=== PATIENT | female | born 1950 | race Caucasian/White ===

== ENCOUNTER 2016-07-03 08:11 | Day surgery (SDC) | payer MEDICARE, OTHER ==
[~2016-07-03 08:11] MED LIST: RINGERS SOLUTION,LACTATED 1,000 ML IV PRN
--- OUTSIDE RECORDS SUMMARY | 2016-07-03 08:15 | XMS REPORT | Continuity of Care Document ---
:1950 Author Organization [facility] ([facility]) Address [address] [place] [address] Phone [phone] Care Team Providers Name Role Phone Any Sanchez Primary Care Provider [phone] Source Comments This disclosure is being made pursuant to the Care Everywhere program, applicable federal and state laws, and may not contain all informaitonavailable regarding this patient.[facility] ([facility]) Active Allergies and Adverse Reactions Allergen Noted Date Severity Reactions Comments Sulfa (Sulfonamide Antibiotics) 05/18/2014 Urticaria (Hives) Current Medications Prescription Sig. Disp. Refills Start Date End Date Status hydrochlorothiazide 25 mg Take 25 mg by Active tablet mouth daily. potassium chloride 10 mEq Take 10 mEq by Active XR tablet mouth daily. rOPINIRole 1 mg tablet Take 1 mg by Active mouth as needed. metoPROLol succinate 50 mg Take 50 mg by 07/28/2015 Active XL tablet mouth daily. hydroxychloroquine 200 mg Take 1.5 45 tablet 2 02/22/2016 Active tablet tablets (300 mg total) by mouth daily. levothyroxine 125 mcg Take 125 mcg Active tablet by mouth every morning before breakfast. folic acid 1 mg tablet Take 1 tablet 90 tablet 3 02/22/2016 Active (1 mg total) by mouth daily. methotrexate 2.5 mg tablet Take 8 tablets 32 tablet 5 02/22/2016 Active (20 mg total) by mouth every week. predniSONE 5 mg tablet 7.5 mg x 1 wk 21 tablet 1 02/22/2016 Active and taper 2.5 mg every 1 week until off. Active Problems Problem Noted Date Elevated liver enzymes 02/28/2016 Overview: DICLOFENAC Erosive osteoarthritis of hands, bilateral 11/02/2015 Overview: FILMS 10/18. Venous stasis dermatitis of both lower extremities 05/26/2014 Rheumatoid arthritis with rheumatoid factor of multiple sites 05/24/2014 Generalized OA 05/18/2014 Most Recent Encounters Date Type Specialty Providers Description 04/24/2016 Lab Requisition Pathology [facility], [facility] Dx: Squamous cell carcinoma of skin of right upper limb, including shoulder Immunizations Name Dates Previously Given Next Due Influenza, quadrivalent PF 02/22/2016 Zoster, live (Zostavax) 05/18/2015 Social History Tobacco Use Types Packs/Day Years Used Date Former Smoker Cigarettes 0.25 20 Quit: 03/10/2015 Smokeless Tobacco: Never Used Alcohol Use Drinks/Week oz/Week Comments Yes rare Last Filed Vital Signs Vital Sign Reading Time Taken Blood Pressure 145/72 02/22/2016 11:12 AM CDT Pulse 61 02/22/2016 11:12 AM CDT Temperature 36.4 C (97.5 F) 02/22/2016 11:12 AM CDT Respiratory Rate - - Height 1.753 m (5' 9") 08/09/2015 10:07 AM CDT Weight 84.7 kg (186 lb 11.7 oz) 02/22/2016 11:12 AM CDT Body Mass Index 27.56 02/22/2016 11:12 AM CDT Oxygen Saturation - - Plan of Care Date Type Specialty Providers Description 08/29/2016 Appointment Med Rheumatology Isiah Dinh MD Chief Comp: Patient [address] [place] [address] Visit [phone] (Fax) Health Maintenance Due Date Last Done Comments HCV Screening 1950 Hepatitis B Vaccine (1 of 3 - Primary Series) 1950 Tdap Vaccine 1960 Lipid Disorder Screening 08/20/1967 Td Vaccine 08/20/1967 Mammogram 1989 Colonoscopy 1999 Osteoporosis Screening (DXA Bone Density) 2014 Pneumococcal Vaccine (1 of 2 - PCV13) 2014 Zoster Vaccine Completed 05/18/2015 Influenza Vaccine: Seasonal Completed 02/22/2016 Results from Last 3 Months EXTERNAL MISCELLANEOUS LAB (06/27/2016)Only the most recent of3 resultswithin the time period is included. Component Value Range Ext Creatinine 0.71 0.4-1.4 MG/DL Ext Albumin 3.8 3.4-5.0 G/DL Ext ALT 38 19-67 U/L Ext AST 21 0-48 U/L Ext WBC Count 5.1 4.0-10.5 K/MM3 Ext Hemoglobin 13.0 12.5-16.0 G/DL Ext MCV (Mean Corpuscular Volume) 99.7 78-100 FL Ext Platelet Count 200 150-450 K/MM3 DERMATOPATHOLOGY EXAM (04/22/2016 3:00 PM) Component Value Range Case Report Surgical Pathology Case: [id number] Authorizing Provider:[facility], [facility] Collected: 04/22/2016 03:00 PM Pathologist: Efraín Ogden MD Received: 04/24/2016 12:03 PM Specimen:Skin, other, specify, R Forearm Diagnosis Skin, right forearm, shave biopsy: Squamous cell carcinoma, well differentiated. I have personally reviewed this case and edited the report as necessary. Clinical Information Tissue source/site: Skin shave R forearm. Pertinent clinical history and findings: 1 cm erythematous tender papule with hyperkeratotic scale. Clinical differential diagnosis: SCC. Gross Description A.Received in formalin, in a container labeled Papa, Yoli A, date of , and "R Forearm", is a 1.4 x 1.3 x 0.4 cm velasquez shave biopsy.The specimen is inked, trisected and submitted entirely in A1. LRL/tkr Microscopic Description Sections of skin show a hyperparakeratotic atypical squamous proliferation arising from the epidermis with extension into the dermis as discontiguous atypical squamous islands. Margins are involved. Performed by:Keon Ch MD, R4/rls Specimen Skin - Skin, other, specify
[2016-07-03] MEDS ORDERED: RINGERS SOLUTION,LACTATED 1,000 ML IV ONE (08:47)
[2016-07-03 11:12] VITALS: BP 170/84
--- NOTE | 2016-07-03 12:05 | OR ---
Operative Report - Dictated Report Narrative: OPERATIVE REPORT DATE OF OPERATION: 07/03/2016 PREOPERATIVE DIAGNOSIS: No prior dedicated colon studies POSTOPERATIVE DIAGNOSIS: Ulceration at 80 cm (pathology pending), otherwise normal colonoscopy to the cecum OPERATION: Colonoscopy with biopsy at 80 cm SURGEON: Meghann Mahoney MD ANESTHESIA: NORBERT Glez CRNA INDICATIONS FOR PROCEDURE: The patient is a 65-year-old female referred for initial colon screening by Dr. Sanchez. There is no family history of colon cancer. The patient is currently asymptomatic FINDINGS: Ulcerated area at 80 cm (pathology pending). Very tortuous colon, otherwise normal exam to the cecum. NARRATIVE OF PROCEDURE: The patient was identified in the holding area, and prior to the administration of anesthetic, a multidisciplinary timeout was observed. With the patient in the left lateral position and after the administration of intravenous sedation, the perineum was inspected. There was no evidence of pilonidal disease or skin breakdown. The external appearance of the anus was normal. Sphincter tone was good. The flexible fiberoptic colonoscope was inserted into the rectum which was insufflated with air. The rectal mucosa and submucosal vascular pattern appeared normal, the prep was seen to be complete. The scope was advanced through a very tortuous sigmoid colon, up the descending colon, and around the splenic flexure where the triangular haustral architecture of the transverse colon was seen. At approximately 80 cm an area of ulceration was identified. This was photographed and normal and and NBI.a biopsy was obtained. The site appeared hemostatic. The scope was advanced across the transverse colon, around the hepatic flexure to the cecum, where the confluence of tenia and the ileocecal valve were identified. The mucosa at this level appeared normal. The scope was then slowly withdrawn in a circular fashion so that all aspects of colonic mucosa were inspected. The colon was normal in caliber but redundant in course. The haustral architecture appeared well preserved throughout with no evidence of external compression. Aside from the area of ulceration at 80 cm, the mucosa and submucosal vascular pattern appeared normal, specifically there was no gross evidence to suggest colitis or inflammatory bowel disease and no AV malformations were seen. No elvira diverticulosis was demonstrated. No polyps were encountered. The scope was gradually withdrawn to the level of the rectum. As much insufflated air as possible was removed. The scope was withdrawn from the patient and the procedure terminated. The patient tolerated the anesthetic and procedure well without complication and was transferred back to the ambulatory surgery area awake and in stable condition. The patient remained stable throughout a period of postoperative observation. She denied abdominal discomfort, was able to tolerate by mouth intake, and was up without assistance. I shared the operative findings with the patient and her , and she was given copies of the photographs which appear in the medical record. She was discharged home with instructions not to engage in hazardous activity today, but may resume normal activity tomorrow, and advance diet as tolerated. She is to continue those medications as listed in the history and physical exam. I made arrangements to contact her with the biopsy report and will make additional recommendations for treatment and follow-up based upon that result. Reviewed and electronically signed
== END 2016-07-03 08:12 | disposition home or self-care (01) ==
LOC: AMB 08:11
PROVIDERS: ATTEND Surgery
PROC: 0DBE8ZX Excision of Large Intestine, Via Natural or Artificial Opening Endoscopic, Diagnostic (ICD-10-PCS; principal; 2016-07-03 09:30)
DX: Z12.11 Encounter for screening for malignant neoplasm of colon (principal); K63.3 Ulcer of intestine; K52.9 Noninfective gastroenteritis and colitis, unspecified; I10 Essential (primary) hypertension; M06.9 Rheumatoid arthritis, unspecified; M19.90 Unspecified osteoarthritis, unspecified site; E03.9 Hypothyroidism, unspecified; Z87.891 Personal history of nicotine dependence; Z68.28 Body mass index [BMI] 28.0-28.9, adult

== ENCOUNTER 2018-08-15 16:02 | Inpatient (IN) ==
[2018-08-15] MEDS ORDERED: HYDROmorphone HCL 1 MG/ML DISP.SYRIN ONE (16:12)
[2018-08-15] MEDS ORDERED: HYDROmorphone HCL 1 MG/ML DISP.SYRIN IV ONE (16:12)
[2018-08-15] MEDS ORDERED: ONDANSETRON HCL/PF 2 MG/ML VIAL IV ONE (16:12)
[2018-08-15] MEDS ORDERED: ONDANSETRON HCL/PF 2 MG/ML VIAL ONE (16:13)
[2018-08-15 16:41] LABS: Hematocrit 40.9 % (37.0-47.0); Hemoglobin 14.1 gm/dL (12.5-16.0); Mean Corpuscular Hemoglobin 34.5 pg (27-31); Mean Corpuscular Hgb Conc 34.5 g/dl (32-36); Mean Platelet Volume 9.8 fl (8-12.5); Neutrophil # 9.2 K/mm3 (1.3-6.0); Neutrophil % 84.3 % (42-75.0); Platelet Count 226 K/mm3 (150-450); Red Blood Count 4.09 M/mm3 (4.2-5.4); Red Cell Distribution Width 13.1 % (11.5-14.0); White Blood Count 10.9 K/mm3 (4.0-10.5)
[2018-08-15 16:53] LABS: Albumin * 3.6 gm/dl (3.4-5.0); Anion Gap 15.2 mmol/L (6.8-13.8); BUN/Creatinine Ratio 21.2 (9.0-21.6); Bilirubin, Total 0.4 mg/dL (0.0-1.1); Ca. Corrected For Albumin 9.8 mg/dL (8.4-10.2); Calcium * 9.8 mg/dL (7.9-10.9); Carbon Dioxide 26.8 mmol/L (24-32.6); Total Protein 7.1 gm/dL (6.2-8.2)
--- NOTE | 2018-08-15 17:24 | ERNOTE ---
Lower Extremity HPI - Narrative Date of Service: 08/15/18 - General Lower Extremities Pain: hip: left Time Seen by Provider: 08/15/18 16:05 Source: patient, family Exam Limitations: no limitations - Immun/Allergies/Home Medications Immunizations: IMMUNIZATION HX Immunizations Up to Date Yes History of Influenza Vaccine Yes Hx Pneumococcal Vaccination Yes Allergies/Adverse Reactions: Allergies Allergy/AdvReac Type Severity Reaction Status Date / Time Sulfa (Sulfonamide Allergy Mild Itching Verified 08/15/18 16:22 Antibiotics) Home Medications: HOME MEDICATIONS Folic Acid 1 mg PO DAILY 08/15/18 [Last Taken Unknown] Gabapentin [Neurontin] 100 mg PO BID 08/15/18 [Last Taken Unknown] Hydrochlorothiazide [Hydrodiuril] 25 mg PO DAILY 08/15/18 [Last Taken Unknown] Hydroxychloroquine Sulfate [Plaquenil] 200 mg PO BID 08/15/18 [Last Taken Unknown] Levothyroxine Sodium [Synthroid] 125 mcg PO DAILY 08/15/18 [Last Taken Unknown] Methotrexate Sodium [Methotrexate] 15 mg PO TH 08/15/18 [Last Taken Unknown] Metoprolol Succinate [Toprol Xl] 100 mg PO DAILY 08/15/18 [Last Taken Unknown] - History of Present Illness Narrative: 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 Occurred: just prior to arrival Location of Incident: home Method of Injury: Reports: fell, direct blow Reason for Fall: Reports: lost balance, slipped Loss of Consciousness: Reports: no loss of consciousness Modifying Factors - (Improves): Reports: rest Modifying Factors - (Worsens): Reports: movement Associated Symptoms: Reports: unable to bear weight Other Injuries: Reports: none Prior Treament: Reports: recently seen, treated by physician Review of Systems - Review of Systems Constitutional: Present: See HPI EYE: Present: no symptoms reported ENT: Present: no symptoms reported Respiratory: Present: no symptoms reported Cardiology: Present: no symptoms reported Gastrointestinal/Abdominal: Present: no symptoms reported Genitourinary: Present: no symptoms reported Musculoskeletal: Present: See HPI, muscle pain, muscle stiffness, joint pain Neurological: Present: no symptoms reported Endocrine: Present: no symptoms reported Hematologic/Lymphatic: Present: no symptoms reported Psych: Present: no symptoms reported All Other Systems: All systems neg except as marked Medical History (Updated 08/15/18 @ 16:22 by Antony Mckinley RN) History of femur fracture Hypertension Osteoarthritis Rheumatoid arthritis Surgical History: Surgical History (Updated 08/15/18 @ 16:22 by Antony Mckinley RN) History of section History of elbow surgery Social History: Preferred Language Albanian Do you have any mormonism or No cultural preference? Smoking Status Current every day smoker Abuse History No History of abuse Psych History No pertinent hx Alcohol Use rarely Drug Use none No Social History Section defined Physical Exam - Physical Exam General Appearance: Present: moderate distress, anxious Head Exam: Present: normal inspection, no evidence of injury Eye Exam: Normal inspection: bilateral, PERRL: bilateral, EOMI: bilateral Ears, Nose, Throat: Present: normal ENT inspection, normal pharynx Neck: Present: normal inspection, nontender Respiratory: Present: no respiratory distress, normal breath sounds, no accessory muscle use, chest nontender, lungs clear Cardiovascular/Chest: Present: regular rate, rhythm, no murmur, normal peripheral pulses Peripheral Pulses: N=norm/S=strong/W=weak/B=bound/A=absent: Carotid (R): Normal, Carotid (L): Normal, Radial (R): Normal, Radial (L): Normal, Femoral (R): Normal, Femoral (L): Normal, Dorsalis-pedis (R): Normal, Dorsalis-pedis (L): Normal Gastrointestinal/Abdominal: Present: normal bowel sounds, nontender, nondistended, soft, no organomegaly Back Exam: Present: normal inspection, normal range of motion, no CVA tenderness, no vertebral tenderness Extremity Exam: Present: normal except - - pain over greater trochanter left hip, internal and shortening present Neurological Exam: Present: alert, oriented, normal mood/affect, no motor/sensory deficits Skin Exam: Present: normal color, warm/dry Lymphatic Exam: Present: no adenopathy Progress - Date and Time Seen: Date and Time: 08/15/18 17:21 patient unchanged, case discussed with dr kruse and wm concerning admission - Results and Orders Patient's Lab Results:: I have reviewed the patient's lab results. - Vital Signs Patient's Vital Signs:: I have reviewed the patient's vital signs. Vital Signs: Vital Signs 08/15/18 16:03 Temperature 36.6 C Pulse Rate 73 Respiratory Rate 18 Blood Pressure 175/77 H O2 Sat by Pulse Oximetry 100 - X-Ray X-Ray #1 X-Ray: hip Interpretation: Interp. by me - fracture left hip - Progress/Reassessment Chief Complaint: Hip Pain/Injury Progress:: Unchanged - Transfer of Care Expected Disposition: Admit Plan - Plan Plan: to admit to hospital Departure Clinical Impression: Hip fracture, intertrochanteric - Departure Disposition: Home self-care Condition: Stable Instructions: Hip Fracture Referrals: Any Sanchez MD [Primary Care Provider] -
[2018-08-15] MEDS ORDERED: ONDANSETRON HCL/PF 2 MG/ML VIAL IV PRN (17:49)
[2018-08-15 18:03] LABS: Prothrombin Time (Patient) 10.7 Seconds (9.1-10.7)
--- NOTE | 2018-08-15 18:06 | HP ---
Chief Complaint - Chief Complaint Date of Service: 08/15/18 Time of Service: 17:45 Chief Complaint: left groin pain s/p fall History of Present Illness: 67-year-old female with a past medical history of hypertension, osteoarthritis, rheumatoid arthritis presents status post fall with left groin pain. She states that she was outside when she tripped and fell. She noted pain in her left groin and presented to the ER. In the ER she had a x-ray of her hip that showed fracture. Dr. Grayson was contacted and states he would like to operate on her tomorrow. Medical History (Updated 08/15/18 @ 18:06 by Yanelis Quevedo MD) History of femur fracture Hypertension Osteoarthritis Rheumatoid arthritis Surgical History: Surgical History (Updated 08/15/18 @ 16:22 by Antony Mckinley RN) History of section History of elbow surgery Social History: Preferred Language Icelandic Do you have any jain or No cultural preference? Smoking Status Current every day smoker Abuse History No History of abuse Psych History No pertinent hx Alcohol Use rarely Drug Use none No Social History Section defined Review Of Systems (GEN) - Review of Systems Generalized/Overall Review: Absent: Fever EENTM: Absent: Eye Pain Respiratory: Absent: Shortness of Breath Cardiac: Absent: Chest Pain, Edema Abdominal: Absent: Abdominal Pain Genitourinary: Present: Other - Left groin pain Misc: All systems neg except as marked Immunizations: IMMUNIZATION HX Immunizations Up to Date Yes History of Influenza Vaccine Yes Hx Pneumococcal Vaccination Yes Allergies/Adverse Reactions: Allergies Allergy/AdvReac Type Severity Reaction Status Date / Time Sulfa (Sulfonamide Allergy Mild Itching Verified 08/15/18 16:22 Antibiotics) Home Medications: HOME MEDICATIONS Folic Acid 1 mg PO DAILY 08/15/18 [Last Taken Unknown] Gabapentin [Neurontin] 100 mg PO BID 08/15/18 [Last Taken Unknown] Hydrochlorothiazide [Hydrodiuril] 25 mg PO DAILY 08/15/18 [Last Taken Unknown] Hydroxychloroquine Sulfate [Plaquenil] 200 mg PO BID 08/15/18 [Last Taken Unknown] Levothyroxine Sodium [Synthroid] 125 mcg PO DAILY 08/15/18 [Last Taken Unknown] Methotrexate Sodium [Methotrexate] 15 mg PO TH 08/15/18 [Last Taken Unknown] Metoprolol Succinate [Toprol Xl] 100 mg PO DAILY 08/15/18 [Last Taken Unknown] Exam - Exam Vital Signs: Vital Signs - Last Taken Temp 36.6 C 08/15/18 16:03 Pulse 73 08/15/18 16:03 Resp 18 08/15/18 16:03 BP 175/77 H 08/15/18 16:03 Pulse Ox 100 08/15/18 16:03 Constitutional: Present: Alert, Cooperative, Well developed, Well nourished, No distress, Elderly Eye Exam: bilateral eye: normal inspection, PERRL Neck: Present: supple, trachea midline. Absent: lymphadenopathy (R), lymphadenopathy (L) Respiratory: Present: lungs clear. Absent: crackles, rhonchi, wheezing Cardiovascular/Chest: Present: regular rate, rhythm, no edema, no murmur Peripheral Pulses: dorsalis-pedis (R): 2+, dorsalis-pedis (L): 2+ Abdomen: Present: Normal bowel sounds, soft, nontender, nondistended Extremity: Present: no pedal edema Skin Exam: Present: normal color, warm/dry Neurologic: Present: alert, normal mood/affect Appearance: Present: appropriate appearance Eye contact: Present: cooperative, good eye contact Thoughts: Present: normal thought pattern Diagnostic Studies: Abnormal Lab Results 08/15/18 08/15/18 Range/Units 16:35 16:35 WBC 10.9 H (4.0-10.5) K/mm3 RBC 4.09 L (4.2-5.4) M/mm3 MCH 34.5 H (27-31) pg Immature Gran # (Auto) 0.04 H (0.000-0.0310) K/mm3 Neutrophils % 84.3 H (42-75.0) % Lymphocytes % 9.7 L (20-51) % Neutrophils # 9.2 H (1.3-6.0) K/mm3 Lymphocytes # 1.05 L (1.5-3.5) k/mm3 Anion Gap 15.2 H (6.8-13.8) mmol/L Est GFR (Non-Af Amer) 59 L D (60-130) mL/min Random Glucose 124 H (70-110) mg/dL Laboratory Results WBC 10.9 K/mm3 (4.0-10.5) H 08/15/18 16:35 RBC 4.09 M/mm3 (4.2-5.4) L 08/15/18 16:35 Hgb 14.1 gm/dL (12.5-16.0) 08/15/18 16:35 Hct 40.9 % (37.0-47.0) 08/15/18 16:35 MCV 100.0 fl (78-100) 08/15/18 16:35 MCH 34.5 pg (27-31) H 08/15/18 16:35 MCHC 34.5 g/dl (32-36) 08/15/18 16:35 RDW 13.1 % (11.5-14.0) 08/15/18 16:35 Plt Count 226 K/mm3 (150-450) 08/15/18 16:35 MPV 9.8 fl (8-12.5) 08/15/18 16:35 Immature Gran % (Auto) 0.40 % (0.001-0.429) 08/15/18 16:35 Immature Gran # (Auto) 0.04 K/mm3 (0.000-0.0310) H 08/15/18 16:35 84.3 % (42-75.0) H 08/15/18 16:35 9.7 % (20-51) L 08/15/18 16:35 4.3 % (0.0-9) 08/15/18 16:35 0.9 % (0.0-3.0) 08/15/18 16:35 0.4 % (0.0-1.0) 08/15/18 16:35 Nucleated RBC % 0.0 k/mm3 (0-1) 08/15/18 16:35 9.2 K/mm3 (1.3-6.0) H 08/15/18 16:35 1.05 k/mm3 (1.5-3.5) L 08/15/18 16:35 0.5 k/mm3 (0.0-1.0) 08/15/18 16:35 0.1 k/mm3 (0.0-0.7) 08/15/18 16:35 Absolute Basophils 0.0 k/mm3 (0.0-0.1) 08/15/18 16:35 Sodium 141 mmol/L (132-142) 08/15/18 16:35 141 mmol/L (130-142) 08/15/18 16:35 Potassium 4.0 mmol/L (3.4-4.6) D 08/15/18 16:35 Chloride 103 mmol/L (97-106) 08/15/18 16:35 Carbon Dioxide 26.8 mmol/L (24-32.6) 08/15/18 16:35 15.2 mmol/L (6.8-13.8) H 08/15/18 16:35 BUN 21 mg/dL (3-23) D 08/15/18 16:35 0.99 mg/dL (0.4-1.4) 08/15/18 16:35 Est GFR (Non-Af Amer) 59 mL/min (60-130) L D 08/15/18 16:35 21.2 (9.0-21.6) 08/15/18 16:35 124 mg/dL (70-110) H 08/15/18 16:35 Calcium 9.8 mg/dL (7.9-10.9) 08/15/18 16:35 Calcium Adj for Albumin 9.8 mg/dL (8.4-10.2) 08/15/18 16:35 0.4 mg/dL (0.0-1.1) 08/15/18 16:35 AST 33 U/L (0-48) 08/15/18 16:35 ALT 30 U/L (19-67) 08/15/18 16:35 85 U/L (50-170) 08/15/18 16:35 7.1 gm/dL (6.2-8.2) 08/15/18 16:35 3.6 gm/dl (3.4-5.0) 08/15/18 16:35 Assessment/Plan - Narrative Narrative: 67-year-old female with a past medical history of hypertension, osteoarthritis, rheumatoid arthritis presents status post fall with left groin pain. She states that she was outside when she tripped and fell. She noted pain in her left groin and presented to the ER. In the ER she had a x-ray of her hip that showed fracture. Dr. Grayson was contacted and states he would like to operate on her tomorrow. She is medically cleared for the left hip fracture repair. - Assessment/Plan (1) Hip fracture, intertrochanteric Problem: Acute Qualifiers: Encounter type: initial encounter Laterality: left (2) HTN (hypertension) Assessment: Uncontrolled, likely secondary to pain. Continue with pain control. Problem: Chronic Qualifiers: Hypertension type: essential hypertension Qualified Code(s): I10 - Essential (primary) hypertension (3) Hypothyroidism Assessment: Resume home meds. Problem: Chronic (4) Rheumatoid arthritis Assessment: Resume home meds. Problem: Chronic
[2018-08-15 18:17] LABS: INR 1.08 INR (0.92-1.08); Partial Thrombolplastin Time 26.1 Seconds (24-32)
[2018-08-15] MEDS: NORMAL SALINE 1,000 ML IV PRN (18:17)
[2018-08-15] MEDS: HYDROmorphone HCL 1 MG/ML DISP.SYRIN IV PRN ×2 (18:20→21:18)
[2018-08-15] MEDS ORDERED: GABAPENTIN 100 MG CAPSULE PO SCH (21:00)
[2018-08-15] MEDS: HYDROXYCHLOROQUINE SULFATE 200 MG TABLET PO SCH (21:33)
[2018-08-15] MEDS: GABAPENTIN 100 MG CAPSULE PO SCH (21:33)
[2018-08-16] MEDS: HYDROmorphone HCL 1 MG/ML DISP.SYRIN IV PRN ×4 (00:09→07:12)
[2018-08-16] MEDS: NORMAL SALINE 1,000 ML IV PRN (02:38)
[2018-08-16] MEDS: LEVOTHYROXINE SODIUM 125 MCG TABLET PO SCH (07:06)
--- NOTE | 2018-08-16 07:49 | CONS ---
- Reason for consultation (1) Fracture of femoral neck, closed Date of Service: 08/16/18 HPI - General Date of Service: 08/16/18 Narrative: Yloi is a 67-year-old active female [place] of [facility]. She was outside yesterday when she tripped and fell and landed on her left hip. She had immediate pain and inability to bear weight. She was brought to the emergency department where plain films reveal a displaced femoral neck fracture. Additional workup revealed no other injuries. She was admitted to the hospital under the medicine service and orthopedics was consulted for further evaluation and management of her hip fracture. She has a history of previous hip fracture on the right which was treated with cannulated screw fixation years ago. She complains only of left hip pain upon evaluation. She denies any numbness or tingling, chest pain, shortness of breath, headache, or dizziness. Source: patient - History of Present Illness Allergies/Adverse Reactions: Allergies Sulfa (Sulfonamide Antibiotics) Allergy (Mild, Verified 08/15/18 19:30) Itching Home Medications: Home Medications Medication Instructions Recorded Last Taken Folic Acid 1 mg PO DAILY 08/15/18 Unknown Gabapentin [Neurontin] 200 mg PO HS 08/15/18 Unknown Hydrochlorothiazide [Hydrodiuril] 25 mg PO DAILY 08/15/18 Unknown Hydroxychloroquine Sulfate 200 mg PO BID 08/15/18 Unknown [Plaquenil] Levothyroxine Sodium [Synthroid] 125 mcg PO DAILY 08/15/18 Unknown Methotrexate Sodium [Methotrexate] 15 mg PO TH 08/15/18 Unknown Metoprolol Succinate [Toprol Xl] 100 mg PO DAILY 08/15/18 Unknown Procedures Application of splint (01/08/13) Excision of Large Intestine, Via Natural or Artificial Opening Endoscopic, Diagnostic (07/03/16) Medications - Medications Current Medications: Current Medications Gabapentin (Neurontin) 200 mg PO HS YANG Stop: 09/14/18 21:01 Last Admin: 08/15/18 21:33 Dose: 200 mg Documented by: Hydromorphone HCl (Dilaudid) 1 mg IV Q2H PRN PRN Reason: Analgesia Stop: 09/14/18 17:50 Last Admin: 08/16/18 07:12 Dose: 1 mg Documented by: Hydroxychloroquine Sulfate (Plaquenil) 200 mg PO BID YANG Stop: 09/14/18 21:01 Last Admin: 08/15/18 21:33 Dose: Not Given Documented by: Sodium Chloride (Sodium Chloride 0.9%) 1,000 mls @ 125 mls/hr IV .Q8H PRN PRN Reason: HYDRATION Stop: 09/14/18 17:49 Last Admin: 08/16/18 02:38 Dose: 125 mls/hr Documented by: Levothyroxine Sodium (Synthroid) 125 mcg PO DAILY@0700 YANG Stop: 09/15/18 07:01 Last Admin: 08/16/18 07:06 Dose: Not Given Documented by: Review of Systems - Review of Systems Narrative: As per HPI, otherwise negative. Physical Examination - Exam Narrative: Gen: Alert and oriented 3, no acute distress Resp: Breathing nonlabored, saturating 98% on room air CV: Regular rate and rhythm MSK: Left lower extremity shortened and externally rotated, severe pain with any attempted motion of the left hip, SILT in all nerve distributions of the left lower extremity, palpable DP and PT pulses Radiology: Plain films demonstrate a displaced subcapital femoral neck fracture, [place] B bone of the femur, minimal degenerative changes of the acetabulum Vital Signs: Vital Signs - Last Taken Temp 37.1 C 08/16/18 06:00 Pulse 73 08/16/18 06:00 Resp 18 08/16/18 06:00 BP 142/63 08/16/18 06:00 Pulse Ox 95 08/16/18 06:00 O2 Oxygen Delivery Method Room Air - Results and Findings: Narrative: Yoli is a 67-year-old female with a displaced left subcapital femoral neck fracture. -I discussed treatment options with her today including nonoperative management with protected weightbearing and pain control versus arthroplasty. Given her age, good health, and activity level, I recommend a left total hip arthroplasty. I counseled her on the risks of surgery including, but not limited to, infection, bleeding, nerve injury, intraoperative fracture, dislocation, leg length discrepancy, persistent pain, limp, DVT/PE, risk of anesthesia, and . After discussion, she wishes to proceed with surgery. Informed consent was obtained. -Plan for left total hip arthroplasty today. -Patient nothing by mouth since midnight. -Continue medical co-management. Lab/Microbiology results last 24 hrs: Abnormal/Pending Laboratory Last 24 HRS 08/15/18 08/15/18 16:35 16:35 WBC 10.9 H RBC 4.09 L MCH 34.5 H Immature Gran # (Auto) 0.04 H Neutrophils % 84.3 H Lymphocytes % 9.7 L Neutrophils # 9.2 H Lymphocytes # 1.05 L Anion Gap 15.2 H Est GFR (Non-Af Amer) 59 L D Random Glucose 124 H - Assessments/Findings (1) Fracture of femoral neck, closed Problem: Acute
[2018-08-16] MEDS ORDERED: ceFAZolin SODIUM/DEXTROSE,ISO 2 GM/50 ML BAG IV ONE (07:55)
[2018-08-16] MEDS ORDERED: ROPIVACAINE HCL/PF 100 MG, EPINEPHrine 0.2 MG, KETOROLAC TROMETHAMINE 30 MG in NORMAL S... IJ PRN (07:56)
--- NOTE | 2018-08-16 08:05 | ANES ---
Anesthesia Pre Procedure Eval Vitals/Labs: Last Vital Signs Temp 37.1 C 08/16/18 06:00 Pulse 73 08/16/18 06:00 Resp 18 08/16/18 06:00 BP 142/63 08/16/18 06:00 Pulse Ox 95 08/16/18 06:00 HOME MEDICATIONS Folic Acid 1 mg PO DAILY 08/15/18 [Last Taken Unknown] Gabapentin [Neurontin] 200 mg PO HS 08/15/18 [Last Taken Unknown] Hydrochlorothiazide [Hydrodiuril] 25 mg PO DAILY 08/15/18 [Last Taken Unknown] Hydroxychloroquine Sulfate [Plaquenil] 200 mg PO BID 08/15/18 [Last Taken Unknown] Levothyroxine Sodium [Synthroid] 125 mcg PO DAILY 08/15/18 [Last Taken Unknown] Methotrexate Sodium [Methotrexate] 15 mg PO TH 08/15/18 [Last Taken Unknown] Metoprolol Succinate [Toprol Xl] 100 mg PO DAILY 08/15/18 [Last Taken Unknown] Allergies/Adverse Reactions: Allergies Allergy/AdvReac Type Severity Reaction Status Date / Time Sulfa (Sulfonamide Allergy Mild Itching Verified 08/15/18 19:30 Antibiotics) - Planned Procedure Planned Procedure: Left CONCHITA Medication List Reviewed:: Yes Allergies Verified: Yes Medical History (Updated 08/16/18 @ 07:58 by Anthony Han CRNA) History of femur fracture Hypertension Myocardial infarction (lateral wall) Osteoarthritis Rheumatoid arthritis 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 Surgical History (Updated 08/15/18 @ 19:27 by Cathy Bower RN) History of section History of elbow surgery Right femoral fracture Family History (Last Reviewed 08/16/18 @ 07:58 by Anthony Han CRNA) Father Lung cancer Hypertension Mother Pacemaker CVA (cerebral vascular accident) Brother Melanoma Sister Hypertension Osteoarthritis - Airway/Neck/Teeth Within Normal Limits:: Yes Denture Type: Full upper, Full lower Mallampatti Score: 2 Thyromental (T-M) distance: > 6 cm Mandibulo Hyoid distance: > 3 cm - Respiratory Smoking Status: Current every day smoker Discussed smoking cessation including day of surgery: Yes Sleep Apnea currently treated: No Sleep Apnea by current assessment: No Discussed Risks/Treatment of PATY: No - Cardiovascular Tolerate Activity: Fair Heart Sounds: S1 & S2, Regular - Anesthesia Assessment and Plan ASA Class: PS, III Anesthesia Type Plan: Spinal
[2018-08-16] MEDS: RINGER'S SOLUTION,LACTATED 1,000 ML IV PRN ×2 (08:40→10:00)
[2018-08-16] MEDS ORDERED: TRANEXAMIC ACID 1,000 MG in NORMAL SALINE 100 ML IV PRN (09:26)
[2018-08-16] MEDS ORDERED: VANCOMYCIN HCL 1 GM in DEXTROSE 5 % IN WATER 250 ML IV ONE ×2 (10:02)
[2018-08-16] MEDS ORDERED: VANCOMYCIN HCL 1 GM VIAL TP ONE (10:15)
[2018-08-16] MEDS ORDERED: MAGNESIUM HYDROXIDE 30 ML UDC PO PRN (10:55)
[2018-08-16] MEDS ORDERED: MAG HYDROX/ALUMINUM HYD/SIMETH 30 ML UDC PO PRN (10:55)
[2018-08-16] MEDS ORDERED: diphenhydrAMINE HCL 50 MG/ML VIAL IV PRN (10:55)
[2018-08-16] MEDS ORDERED: MORPHINE SULFATE 2 MG/ML DISP.SYRIN IV PRN (10:55)
[2018-08-16] MEDS ORDERED: oxyCODONE HCL/ACETAMINOPHEN 1 TAB TABLET PO PRN (10:55)
[2018-08-16] MEDS ORDERED: ACETAMINOPHEN 500 MG TABLET PO PRN (10:55)
[2018-08-16] MEDS ORDERED: NORMAL SALINE 1,000 ML IV PRN (10:58)
--- NOTE | 2018-08-16 11:06 | OR ---
Operative Report - Dictated Report Narrative: Date: 08/16/2018 Preoperative diagnosis: Displaced eft subcapital femoral neck fracture Postoperative diagnosis: Displaced left subcapital femoral neck fracture Procedure: Left uncemented total hip arthroplasty Surgeon: Juan Gonzalez M.D. Marriage And Family Teacher: Leesa Anesthesia: Spinal and local periarticular joint injection. Complications: None Specimens: Bone for disposal. Estimated blood loss: 200 milliliters. Retained implants: Depuy Corail size 15 femoral stem standard offset. Size 54 millimeter ouside diameter 3-hole [place] Gription acetabular cup. 54 millimeter outside by 36 millimeter inside diameter highly cross-linked acetabular liner. 36 millimeter diameter +12 millimeter ceramic femoral head. Cancellous 6.5mm screw 30 millimeter length Indications: Yoli is a 67-year-old female community ambulator [place] She tripped and fell outside resulting in a displaced left femoral neck fracture. She was admitted to the hospital under medicine service and orthopedics was consulted for further management. I counseled her on treatment options and recommended a total hip arthroplasty based on her age, health, and activity level. Patient wished to proceed with surgical treatment. The risks, benefits, and alternatives were discussed in clinic. The risks of , blood clots, bleeding, infection, nerve/tendon blood vessel/ injury, malposition of components, dislocation and/or instability of joint, intraoperative fracture, postoperative limited range of motion, persistent pain, failure of components, and need for additional procedures. Patient wished to proceed. Consent was obtained after answering all questions. Procedure: After marking the correct extremity on the floor, the patient was taken to the operating room. A timeout was performed. IV antibiotics consisting of 2 g of Ancef were administered prior to the procedure. A spinal anesthetic was induced by anesthesia. A Marie catheter was inserted. The patient was then transitioned to a lateral position on a well-padded pegboard and an axillary roll was placed. The head was in neutral position. The non- operative down leg was well-padded with SCD and EBONY hose in place. The arms were supported and padded to protect from any undue pressure on the bony prominences and nerves. Well-padded anterior and posterior pelvic and chest posts were secured in order to maintain a stable position of the pelvis. This was placed so that the pelvis was perpendicular to the floor. The body was in line with the pelvis. Once it was felt that we had protected all the bony prominences and the patient was well secured with a safety belt as well, the leg was pre-scrubbed with alcohol, prepped and draped in a standard sterile fashion. A standard anterior lateral hip incision was marked out over the greater trochanter. Ioban drapes were then placed. The skin incision was then made. Sharp dissection with a scalpel utilizing cautery for hemostasis was carried out down to the gluteus and iliotibial band fascia. This was split in line with the skin incision. The greater trochanter bursa was excised. The anterior and posterior margins of the abductor tendon were identified. The anterior 1/3 of the tendon was tagged and reflected off the greater trochanter leaving a sleeve of tendon for repair at the completion of the case. This exposed the underlying hip joint capsule. A limb length stitch was placed in the skin and referenced off a cheyanne on the greater trochanter for evaluation of intraoperative limb lengths. An inverted T-type capsulotomy was made extending this up to the brim of the acetabulum. Using Homans to assist with elevation of the soft tissues off the anterior, superior, and inferior aspects of the femoral neck, the hip was then placed in a figure 4 position and the hip was dislocated bringing the fractured femoral neck up into view. With the leg in an externally rotated and adducted position, the cutting flag was utilized in order to cheyanne for a standard femoral neck cut approximately a fingerbreadth above the level of the lesser trochanter. This was done while protecting the surrounding soft tissues with Homans. The femoral head was then removed with a corkscrew and sized for guidance on preparation of the acetabulum. It was noted that there was minimal loss of articular cartilage on both the femoral head and weightbearing portions of the acetabulum. We then returned the leg to the table and turned our attention to the acetabulum. While protecting the surrounding soft tissues, the labrum and remaining tissue in the fovea were excised using a scalpel and cautery. A series of reamers up to size 53 millimeter were utilized to prepare the acetabulum. The final reamer had good purchase and exposed the bleeding subchondral bone. The acetabulum was then thoroughly irrigated ensuring that all bony and cartilaginous materials were removed and the final acetabular shell was impacted into place. This was placed in approximately 45 degrees of abduction and 20 degrees of anteversion utilizing the outrigger and body axis for alignment. This had a good press fit. One 6.5 x 30 mm cancellous screw was placed in the posterior superior quadrant of the acetabulum. The shell was then thoroughly irrigated and the final polyethylene was impacted into place ensuring that it seated completely. This was then protected with a sponge while we returned our attention to the femur. With the leg in a figure 4 position utilizing Homans for soft tissue protection, a box cutting osteotome, followed by Charnley awl, followed by serial broaches were utilized in order to prepare the femur. It was found that a size 15 broach gave good axial and rotational stability. The calcar reamer was utilized in order to clean up the cut edges. The proximal femur was visualized to ensure that there were no signs of fracture. A series of heads and necks were trialed. It was found that a standard offset neck and a + 12 millimeter femoral head gave good overall stability. There was minimal longitudinal instability. With the leg in the position of sleep the femoral head was well covered. Hip range of motion was able to reach full extension and external rotation to greater than 75 degrees prior to impingement along the posterior acetabulum. The hip was able to be flexed to greater than 90 degrees with internal rotation greater than 60 degrees prior to anterior impingement. The limb lengths were near equal based on comparison to the contralateral side in the prior placed limb length stitch. At this point was felt these were the appropriately sized femoral components as well as neck and femoral head. The trial implants were removed. The femur was thoroughly irrigated. The final implants were impacted in the place and the hip was reduced. After ensuring that there was no damage to the proximal femur, the standard periarticular joint injection of ropivacaine, Toradol, and epinephrine were injected into the joint capsule and surrounding soft tissues. 1 g of vanc omycin powder was placed in the joint. The capsule was repaired with interrupted #1 Vicryl. The abductor tendon was repaired utilizing #5 Ethibond. This was oversewn with #1 Vicryl. The fascia was closed with #1 Stratafix PDS. The wounds were thoroughly irrigated as we closed in layers. The deep fat layers were closed with 0 Stratafix PDS. The subcutaneous tissue was closed with interrupted 3-0 Vicryl and the skin with daniel. All sponge, needle, blade, and instrument counts were correct prior to closing the wounds. Sterile dressings consisting of Xeroform, 4 x 4's, ABD, and tape were applied. The patient was awoken and transferred to her hospital bed and then to the postanesthesia care unit in stable condition. Postoperative condition: The plan is to admit to the medical/surgical inpatient floor postoperatively. There will be a projected 2 to 4 day hospital stay. Postoperatively 24 hours of IV antibiotics, pain control, physical therapy, occupational therapy, and medical comanagement will be utilized. Patient will be weightbearing as tolerated with anterior hip precautions. Postoperative films will be obtained in the recovery room.
--- NOTE | 2018-08-16 11:17 | ANES ---
Post Anesthesia Discharge - Transfer of Care Transfer of Care handoff given to nurse: Yes - Discharge from PACU Discharge from PACU when meets criteria: Yes - Discharge to ASU Discharge to ASU-no complications/pt stable: Yes
--- NOTE | 2018-08-16 11:18 | ANES ---
Post Anesthesia Assessment - Vital Signs Vitals: Last Vital Signs Temp 37.1 C 08/16/18 06:00 Pulse 73 08/16/18 06:00 Resp 18 08/16/18 06:00 BP 142/63 08/16/18 06:00 Pulse Ox 95 08/16/18 06:00 Airway Patency: Normal - Mental Status Level Of Consciousness: Awake - Pain Level Pain Score: 0 - N/V Assessment Nausea/Vomiting Presence: None Dehydration:: No
--- NOTE | 2018-08-16 12:21 | PN ---
Subjective - Date and Time Seen Date: 08/16/18 Time: 12:10 Subjective Narrative: She feels well, denies pain or shortness of breath. She is not hungry but wants to try to eat her lunch. Objective - Review of Systems Generalized/Overall Review: Denies: Fever Respiratory: Denies: Shortness of Breath Cardiac: Denies: Chest Pain Abdominal: Denies: Abdominal Pain Musculoskeletal Complaints: Denies: Joint Pain Neurological: Reports: Anxiety Misc: All systems neg except as marked - Vitals Vitals: Last Vital Signs Temp 36.4 C 08/16/18 11:30 Pulse 68 08/16/18 11:30 Resp 18 08/16/18 11:30 BP 119/56 08/16/18 11:30 Pulse Ox 93 08/16/18 11:30 - Abnormal Lab Findings Abnormal Lab Findings: Abnormal Lab Results 08/15/18 08/15/18 Range/Units 16:35 16:35 WBC 10.9 H (4.0-10.5) K/mm3 RBC 4.09 L (4.2-5.4) M/mm3 MCH 34.5 H (27-31) pg Immature Gran # (Auto) 0.04 H (0.000-0.0310) K/mm3 Neutrophils % 84.3 H (42-75.0) % Lymphocytes % 9.7 L (20-51) % Neutrophils # 9.2 H (1.3-6.0) K/mm3 Lymphocytes # 1.05 L (1.5-3.5) k/mm3 Anion Gap 15.2 H (6.8-13.8) mmol/L Est GFR (Non-Af Amer) 59 L D (60-130) mL/min Random Glucose 124 H (70-110) mg/dL - Exam Constitutional: Present: Alert, Cooperative, Well developed, Well nourished, Elderly ENT Exam: Present: hearing grossly normal Respiratory: Present: lungs clear, normal breath sounds, no respiratory distress, No wheezing. Absent: crackles, rhonchi Cardiovascular/Chest: Present: regular rate, rhythm, no edema, no murmur Abdomen: Present: Normal bowel sounds, soft, nontender Extremity: Present: no pedal edema Skin Exam: Present: normal color, warm/dry Neurologic: Present: alert, normal mood/affect Appearance: Present: appropriate appearance Eye contact: Present: cooperative, good eye contact Thoughts: Present: normal thought pattern, normal mood /affect Cauti Physician Documentation - Urinary Catheter Management Urethral (Marie) Date of Insertion: 08/15/18 Time of Insertion: 17:48 Assessment/Plan Plan Narrative: 67-year-old female with a past medical history of hypertension, osteoarthritis, rheumatoid arthritis presents status post fall with left groin pain. She states that she was outside when she tripped and fell. She noted pain in her left groin and presented to the ER. In the ER she had a x-ray of her hip that showed fracture. Dr. Gonzalez performed a left uncemented total hip arthroplasty today. She is back from the PACU and is doing well. Denies pain or shortness of breath. - Problems/Diagnosis (1) Hip fracture, intertrochanteric Problem: Acute Qualifiers: Encounter type: initial encounter Laterality: left Narrative: She is status post left total hip arthroplasty performed this morning. She is doing well and currently has no pain. (2) HTN (hypertension) Problem: Chronic Qualifiers: Hypertension type: essential hypertension Qualified Code(s): I10 - Essential (primary) hypertension Narrative: Blood pressure stable. (3) Hypothyroidism Problem: Chronic Narrative: Resume home meds. (4) Rheumatoid arthritis Problem: Chronic Narrative: Continue home meds.
[2018-08-16] MEDS: FOLIC ACID 1 MG TABLET PO SCH (12:55)
[2018-08-16] MEDS: METOPROLOL SUCCINATE 100 MG TABLET.SA PO SCH (12:55)
[2018-08-16] MEDS: HYDROCHLOROTHIAZIDE 25 MG TABLET PO SCH (12:55)
[2018-08-16] MEDS: HYDROXYCHLOROQUINE SULFATE 200 MG TABLET PO SCH ×2 (12:55→20:42)
[2018-08-16] MEDS: oxyCODONE HCL/ACETAMINOPHEN 1 TAB TABLET PO PRN ×3 (14:09→22:39)
[2018-08-16] MEDS: ceFAZolin SODIUM 2 GM in DEXTROSE 5 % IN WATER 50 ML IV SCH ×4 (14:10→22:39)
[2018-08-16] MEDS: SENNOSIDES/DOCUSATE SODIUM 1 TAB TABLET PO SCH (20:41)
[2018-08-16] MEDS: GABAPENTIN 100 MG CAPSULE PO SCH (20:42)
[2018-08-17] MEDS: oxyCODONE HCL/ACETAMINOPHEN 1 TAB TABLET PO PRN ×4 (05:14→20:15)
[2018-08-17] MEDS: ceFAZolin SODIUM 2 GM in DEXTROSE 5 % IN WATER 50 ML IV SCH ×2 (05:15)
[2018-08-17 05:37] LABS: Hematocrit 33.9 % (37.0-47.0); Hemoglobin 11.3 gm/dL (12.5-16.0); Mean Cell Volume 100.6 fl (78-100); Mean Corpuscular Hemoglobin 33.5 pg (27-31); Mean Corpuscular Hgb Conc 33.3 g/dl (32-36); Mean Platelet Volume 9.5 fl (8-12.5); Platelet Count 157 K/mm3 (150-450); Red Blood Count 3.37 M/mm3 (4.2-5.4); Red Cell Distribution Width 12.7 % (11.5-14.0); White Blood Count 6.9 K/mm3 (4.0-10.5)
[2018-08-17 05:44] LABS: Anion Gap 11.4 mmol/L (6.8-13.8); Calcium * 8.2 mg/dL (7.9-10.9); Carbon Dioxide 28.4 mmol/L (24-32.6); Potassium 2.8 mmol/L (3.4-4.6)
[2018-08-17 06:05] LABS: BUN/Creatinine Ratio 9.6 (9.0-21.6)
[2018-08-17] MEDS: LEVOTHYROXINE SODIUM 125 MCG TABLET PO SCH (07:04)
--- NOTE | 2018-08-17 08:43 | PN ---
Subjective - Date and Time Seen Date: 08/17/18 Subjective Narrative: No events overnight. Patient doing well sitting up in chair this am. Pain well controlled. Has ambulated around her room with nursing staff and PT. Objective - Vitals Vitals: Last Vital Signs Temp 37.4 C 08/17/18 06:30 Pulse 78 08/17/18 06:30 Resp 16 08/17/18 06:30 BP 120/58 08/17/18 06:30 Pulse Ox 93 08/17/18 06:30 - Abnormal Lab Findings Abnormal Lab Findings: Abnormal Lab Results 08/17/18 08/17/18 Range/Units 05:30 05:30 RBC 3.37 L (4.2-5.4) M/mm3 Hgb 11.3 L (12.5-16.0) gm/dL Hct 33.9 L (37.0-47.0) % MCV 100.6 H (78-100) fl MCH 33.5 H (27-31) pg Potassium 2.8 L D (3.4-4.6) mmol/L - Exam Exam Narrative: Gen: A&Ox3, NAD Resp: breathing non-labored on RA CV: RRR MSK: LLE--> dressings c/d/i, mild post op swelling, distal cap refill brisk, SILT Cauti Physician Documentation - Urinary Catheter Management Urethral (Marie) Date of Insertion: 08/15/18 Time of Insertion: 17:48 Date of Removal: 08/17/18 Time of Removal: 05:30 Assessment/Plan Plan Narrative: 67 yo F w/ displaced L femoral neck fx s/p uncemented CONCHITA, POD #1. - WBAT, anterior hip precautions - reg diet - oral pain meds - PT/OT - DVT ppx: teds/SCDs/lovenox - continue Medicine co-management - dispo: continue inpatient care, d/c planning ongoing - Problems/Diagnosis (1) Fracture of femoral neck, closed Problem: Acute
[2018-08-17] MEDS: HYDROCHLOROTHIAZIDE 25 MG TABLET PO SCH (08:58)
[2018-08-17] MEDS: FOLIC ACID 1 MG TABLET PO SCH (08:58)
[2018-08-17] MEDS: HYDROXYCHLOROQUINE SULFATE 200 MG TABLET PO SCH ×2 (08:58→20:16)
[2018-08-17] MEDS: METOPROLOL SUCCINATE 100 MG TABLET.SA PO SCH (08:59)
[2018-08-17] MEDS ORDERED: POTASSIUM BICARBONATE/CIT AC 25 MEQ TABLET.EFF PO ONE (09:05)
[2018-08-17] MEDS: ENOXAPARIN SODIUM 40 MG/0.4 ML SYRG SC SCH (09:12)
--- NOTE | 2018-08-17 10:29 | PN ---
Subjective - Date and Time Seen Date: 08/17/18 Time: 10:00 Subjective Narrative: She states she is doing well. Left hip pain is about a 4-5 out of 10. Percocet is working well for her she states. She ambulated with physical therapy. Since the Marie catheter has been out she has urinated twice. She is eating but still does not have a big appetite. Objective - Review of Systems Generalized/Overall Review: Denies: Fever Respiratory: Denies: Shortness of Breath Cardiac: Denies: Chest Pain Abdominal: Denies: Abdominal Pain Musculoskeletal Complaints: Reports: Joint Pain - Left hip and left knee Misc: All systems neg except as marked - Vitals Vitals: Last Vital Signs Temp 37.4 C 08/17/18 06:30 Pulse 73 08/17/18 08:59 Resp 16 08/17/18 06:30 BP 144/60 08/17/18 08:59 Pulse Ox 93 08/17/18 06:30 - Abnormal Lab Findings Abnormal Lab Findings: Abnormal Lab Results 08/17/18 08/17/18 Range/Units 05:30 05:30 RBC 3.37 L (4.2-5.4) M/mm3 Hgb 11.3 L (12.5-16.0) gm/dL Hct 33.9 L (37.0-47.0) % MCV 100.6 H (78-100) fl MCH 33.5 H (27-31) pg Potassium 2.8 L D (3.4-4.6) mmol/L - Exam Constitutional: Present: Alert, Cooperative, Well developed, Well nourished, Elderly ENT Exam: Present: moist mucous membranes Neck: Present: non-tender, trachea midline Respiratory: Present: lungs clear, normal breath sounds, no respiratory distress, No wheezing. Absent: crackles, rhonchi Cardiovascular/Chest: Present: normal peripheral pulses, regular rate, rhythm, no murmur Abdomen: Present: Normal bowel sounds, soft, nontender Extremity: Present: no pedal edema Skin Exam: Present: normal color, warm/dry Neurologic: Present: alert, normal mood/affect Appearance: Present: appropriate appearance Eye contact: Present: cooperative, good eye contact Thoughts: Present: normal thought pattern Cauti Physician Documentation - Urinary Catheter Management Urethral (Marie) Urethral Indwelling: No Date of Insertion: 08/15/18 Time of Insertion: 17:48 Date of Removal: 08/17/18 Time of Removal: 05:30 Assessment/Plan Plan Narrative: 67-year-old female with a past medical history of hypertension, osteoarthritis, rheumatoid arthritis presents status post fall with left groin pain. She states that she was outside when she tripped and fell. She noted pain in her left groin and presented to the ER. In the ER she had a x-ray of her hip that showed fracture. Dr. Gonzalez performed a left uncemented total hip arthroplasty on August 16, 2018 she is postop day 1. She is doing well - Problems/Diagnosis (1) Hip fracture, intertrochanteric Problem: Acute Qualifiers: Encounter type: initial encounter Laterality: left Narrative: Postop day 1. Continue with pain management, physical therapy, and bowel regimen. (2) Hypokalemia Problem: Acute Narrative: Replete with 50mEq potassium bicarbonate/citrate today. Repeat chemistry tomorrow. (3) HTN (hypertension) Problem: Chronic Qualifiers: Hypertension type: essential hypertension Qualified Code(s): I10 - Essential (primary) hypertension Narrative: Blood pressure stable, continue with home blood pressure medication regimen. (4) Hypothyroidism Problem: Chronic Narrative: Continue with home dose of levothyroxine. (5) Rheumatoid arthritis Problem: Chronic Narrative: Stable continue with home medications.
[2018-08-17] MEDS: GABAPENTIN 100 MG CAPSULE PO SCH (20:15)
[2018-08-17] MEDS: SENNOSIDES/DOCUSATE SODIUM 1 TAB TABLET PO SCH (20:16)
[2018-08-18] MEDS: oxyCODONE HCL/ACETAMINOPHEN 1 TAB TABLET PO PRN ×2 (03:06→13:12)
[2018-08-18 05:32] LABS: Hematocrit 30.4 % (37.0-47.0); Hemoglobin 10.4 gm/dL (12.5-16.0); Mean Cell Volume 98.7 fl (78-100); Mean Corpuscular Hemoglobin 33.8 pg (27-31); Mean Corpuscular Hgb Conc 34.2 g/dl (32-36); Mean Platelet Volume 9.9 fl (8-12.5); Platelet Count 155 K/mm3 (150-450); Red Blood Count 3.08 M/mm3 (4.2-5.4); Red Cell Distribution Width 12.9 % (11.5-14.0); White Blood Count 7.2 K/mm3 (4.0-10.5)
[2018-08-18 06:02] LABS: Anion Gap 10.5 mmol/L (6.8-13.8); BUN/Creatinine Ratio 9.3 (9.0-21.6); Calcium * 8.1 mg/dL (7.9-10.9); Carbon Dioxide 28.2 mmol/L (24-32.6); Estimated Creat Clear 76.3; Potassium 2.7 mmol/L (3.4-4.6)
[2018-08-18] MEDS: LEVOTHYROXINE SODIUM 125 MCG TABLET PO SCH (06:46)
[2018-08-18] MEDS: FOLIC ACID 1 MG TABLET PO SCH (08:29)
[2018-08-18] MEDS: HYDROXYCHLOROQUINE SULFATE 200 MG TABLET PO SCH (08:29)
[2018-08-18] MEDS: HYDROCHLOROTHIAZIDE 25 MG TABLET PO SCH (08:29)
[2018-08-18] MEDS: METOPROLOL SUCCINATE 100 MG TABLET.SA PO SCH (08:29)
[2018-08-18] MEDS ORDERED: POTASSIUM BICARBONATE/CIT AC 25 MEQ TABLET.EFF PO ONE ×2 (09:12→11:54)
[2018-08-18] MEDS: ENOXAPARIN SODIUM 40 MG/0.4 ML SYRG SC SCH (09:47)
--- NOTE | 2018-08-18 11:43 | PN ---
Subjective - Date and Time Seen Date: 08/18/18 Subjective Narrative: No events overnight. Pain well controlled. Patient has passed all PT goals and is ready for discharge. Objective - Vitals Vitals: Last Vital Signs Temp 37.5 C 08/18/18 11:00 Pulse 84 08/18/18 11:00 Resp 18 08/18/18 11:00 BP 143/49 08/18/18 11:00 Pulse Ox 99 08/18/18 11:00 - Abnormal Lab Findings Abnormal Lab Findings: Abnormal Lab Results 08/18/18 08/18/18 Range/Units 05:05 05:05 RBC 3.08 L (4.2-5.4) M/mm3 Hgb 10.4 L (12.5-16.0) gm/dL Hct 30.4 L (37.0-47.0) % MCH 33.8 H (27-31) pg Potassium 2.7 L (3.4-4.6) mmol/L - Exam Exam Narrative: Gen: A&O x3, NAD Resp: breathing non-labored on RA CV: RRR MSK: dressings c/d/i, mild swelling, mild incisional tenderness, SILT, distal cap refill brisk Cauti Physician Documentation - Urinary Catheter Management Urethral (Marie) Urethral Indwelling: No Date of Insertion: 08/15/18 Time of Insertion: 17:48 Date of Removal: 08/17/18 Time of Removal: 05:30 Assessment/Plan Plan Narrative: 67 yo F w/ displaced L femoral neck fx s/p uncemented CONCHITA, POD #2. - WBAT, anterior hip precautions - reg diet - oral pain meds - PT/OT - has passed all goals - DVT ppx: teds/SCDs/lovenox - continue Medicine co-management - dispo: plan for d/c home with HH today Orthopedic Discharge Instructions: 1. WBAT, anterior hip precautions. 2. Oral pain meds - Percocet 5/325 mg 1-2 tabs q6h prn pain, disp #60. 3. DVT ppx - Lovenox 40 mg SC daily for 8 more days, then 325 mg ASA daily for 6 weeks. [place] hose for 6 weeks. 4. Change dressing every 2-3 days as needed with 4x4 gauze and tape. Keep incision completely dry until follow up. 5. Home health nursing for dressing changes and monitoring of healing. Home health PT for mobility - no abductor strengthening for 6 weeks. 6. Follow up in Orthopedic clinic in 2 weeks. ([phone]) 7. Call with any questions/concerns or for any fever, chills, increasing pain, wound drainage, or any other general decline in condition. Juan Gonzalez MD - Problems/Diagnosis (1) Fracture of femoral neck, closed Problem: Acute
--- NOTE | 2018-08-18 11:57 | DS ---
(1) Hip fracture, intertrochanteric Problem: Acute Qualifiers: Encounter type: initial encounter Fracture type: closed Fracture alignment: displaced Laterality: left Qualified Code(s): S72.142A - Displaced intertrochanteric fracture of left femur, initial encounter for closed fracture (2) Hypokalemia Problem: Acute (3) HTN (hypertension) Problem: Chronic Qualifiers: Hypertension type: essential hypertension Qualified Code(s): I10 - Essential (primary) hypertension (4) Hypothyroidism Problem: Chronic (5) Rheumatoid arthritis Problem: Chronic Description of Stay: 67-year-old female with a past medical history of hypertension, osteoarthritis, rheumatoid arthritis presents status post fall with left groin pain. She states that she was outside when she tripped and fell. She noted pain in her left groin and presented to the ER. In the ER she had a x-ray of her hip that showed fracture. Dr. Gonzalez performed a left uncemented total hip arthroplasty on August 16, 2018 she is postop day 1. She was found to have hypokalemia, repleted orally and recommend that she gets a potassium level within 1 week of discharge with her PCP. I will send her home on potassium 20 mEq daily for the next 3 days. Yoli Elam is confined to the home due to a left hip total arthroplasty. The need for mcfp is for wound monitoring and dressing changes and the need for physical therapy is for mobility, strengthening, gait and balance issues, ADL teaching to be safe, surgery follow-up. The need for home health care skilled services is directly related to the time spent [id number] with the person. Procedures Performed: see notes below List Procedures: Left hip uncemented total hip arthroplasty on August 16, 2018 Results and Findings: Lab Pending Results 08/15/18 16:35: WBC 10.9 H, RBC 4.09 L, Hgb 14.1, Hct 40.9, MCV 100.0, MCH 34.5 H, MCHC 34.5, RDW 13.1, Plt Count 226, MPV 9.8, Immature Gran % (Auto) 0.40, Immature Gran # (Auto) 0.04 H, Neutrophils % 84.3 H, Lymphocytes % 9.7 L, Monocytes % 4.3, Eosinophils % 0.9, Basophils % 0.4, Nucleated RBC % 0.0, Neutrophils # 9.2 H, Lymphocytes # 1.05 L, Monocytes # 0.5, Eosinophils # 0.1, Absolute Basophils 0.0 08/15/18 16:35: Sodium 141, Plasma Sodium 141, Potassium 4.0 D, Chloride 103, Carbon Dioxide 26.8, Anion Gap 15.2 H, BUN 21 D, Creatinine 0.99, Est GFR (Non- Af Amer) 59 L D, BUN/Creatinine Ratio 21.2, Random Glucose 124 H, Calcium 9.8, Calcium Adj for Albumin 9.8, Total Bilirubin 0.4, AST 33, ALT 30, Alkaline Phosphatase 85, Total Protein 7.1, Albumin 3.6 08/15/18 16:35: PT 10.7, INR (Anticoag Therapy) 1.08, PTT ([place]) 26.1 08/17/18 05:30: WBC 6.9 D, RBC 3.37 L, Hgb 11.3 L, Hct 33.9 L, MCV 100.6 H, MCH 33.5 H, MCHC 33.3, RDW 12.7, Plt Count 157, MPV 9.5 08/17/18 05:30: Sodium 139, Plasma Sodium 139, Potassium 2.8 L D, Chloride 102, Carbon Dioxide 28.4, Anion Gap 11.4, BUN 8 D, Creatinine 0.83, Est GFR (Non-Af Amer) 73 D, BUN/Creatinine Ratio 9.6, Random Glucose 98, Calcium 8.2 08/18/18 05:05: WBC 7.2, RBC 3.08 L, Hgb 10.4 L, Hct 30.4 L, MCV 98.7, MCH 33.8 H, MCHC 34.2, RDW 12.9, Plt Count 155, MPV 9.9 08/18/18 05:05: Sodium 137, Plasma Sodium 137, Potassium 2.7 L, Chloride 101, Carbon Dioxide 28.2, Anion Gap 10.5, BUN 7, Creatinine 0.75, Est GFR (Non-Af Amer) 82, BUN/Creatinine Ratio 9.3, Random Glucose 93, Calcium 8.1 Discharge Location: Home Disposition: Home Health Service Home Health Agency: [facility] Home Health Condition: Stable Face to Face Encounter completed per CMS Guidelines: Yes Discharge Activity: Weight bearing Discharge Diet: Low salt Referrals: Any Sanchez MD [Primary Care Provider] - Prescriptions (Any new or edited meds): Aspirin [Aspirin EC] 325 mg PO DAILY 42 Days #42 tablet. Potassium Chloride [Klor-Con] 20 meq PO DAILY #3 packet Enoxaparin Sodium [Lovenox] 40 mg SC Q24H #8 disp.syrin oxyCODONE HCL/ACETAMINOPHEN [Percocet 5 MG/325 MG] 1 - 2 tab PO Q6H PRN #60 tab PRN Reason: Severe Pain (Pain Scale 7-10) Complete Home Medications List: Complete Home Medication List: Folic Acid 1 mg PO DAILY 08/15/18 Gabapentin [Neurontin] 200 mg PO HS 08/15/18 Hydrochlorothiazide [Hydrodiuril] 25 mg PO DAILY 08/15/18 Hydroxychloroquine Sulfate [Plaquenil] 200 mg PO BID 08/15/18 Levothyroxine Sodium [Synthroid] 125 mcg PO DAILY 08/15/18 Methotrexate Sodium [Methotrexate] 15 mg PO TH 08/15/18 Metoprolol Succinate [Toprol Xl] 100 mg PO DAILY 08/15/18 Aspirin [Aspirin EC] 325 mg PO DAILY 42 Days #42 tablet. 08/18/18 Enoxaparin Sodium [Lovenox] 40 mg SC Q24H #8 disp.syrin 08/18/18 Potassium Chloride [Klor-Con] 20 meq PO DAILY #3 packet 08/18/18 oxyCODONE HCL/ACETAMINOPHEN [Percocet 5 MG/325 MG] 1 - 2 tab PO Q6H PRN #60 tab 08/18/18
[2018-08-18 13:50] VITALS: BP 129/58
[2018-08-20] MEDS ORDERED: METHOTREXATE SODIUM 2.5 MG TABLET PO SCH (09:00)
== END 2018-08-18 13:30 | disposition home health service (06) | DRG 470 ==
LOC: ER 16:02 → MS 17:32
PROVIDERS: ADMIT Internal Medicine; ATTEND Internal Medicine
DX: M06.9 Rheumatoid arthritis, unspecified; F17.210 Nicotine dependence, cigarettes, uncomplicated; E03.9 Hypothyroidism, unspecified; S72.012A Unspecified intracapsular fracture of left femur, initial encounter for closed fracture; W01.0XXA Fall on same level from slipping, tripping and stumbling without subsequent striking against object, initial encounter; E87.6 Hypokalemia; I10 Essential (primary) hypertension
CPT/HCPCS: 36415; 71010; 71045; 73502; 80048; 80053; 85025; 85027; 85610; 85730; 93005; 96374; 96375; 97116; 97161; 97165; 97530; 97535; 99285; J2405